=== PATIENT | female | born 1945 | race Caucasian/White ===

== ENCOUNTER → 2019-01-22 | Outpatient (CLI) | payer MEDICARE, OTHER | LOC: LB.LAB 10:39 | PROVIDERS: ATTEND Internal Medicine | DX: C82.90 Follicular lymphoma, unspecified, unspecified site (principal) | CPT/HCPCS: 36415; 80053; 83615; 85025 ==

== ENCOUNTER 2022-10-26 15:09 | Emergency (ER) | payer MEDICARE | END 2022-10-26 16:40 | LOC: LB.ED 15:09 | DX: I48.20 Chronic atrial fibrillation, unspecified (principal); Z79.01 Long term (current) use of anticoagulants; Z79.899 Other long term (current) drug therapy | CPT/HCPCS: 93005; 99285 ==

== ENCOUNTER 2024-09-10 10:54 | Emergency (ER) | payer MEDICARE ==
[2024-09-10 11:17] LABS: BASOPHILS ABSOLUTE AUTO 0.01 K/uL (0.02-0.10); BASOPHILS PERCENT AUTO 0.2 % (0.0-0.5); EOSINOPHILS ABSOLUTE AUTO 0.14 K/uL (0.04-0.40); EOSINOPHILS PERCENT AUTO 2.6 % (1.0-5.0); LYMPHOCYTES ABSOLUTE AUTO 1.92 K/uL (1.50-4.00); LYMPHOCYTES PERCENT AUTO 35.5 % (20.0-40.0); MEAN PLATELET VOLUME 10.9 fL (6.0-10.0); MONOCYTES ABSOLUTE AUTO 0.46 K/uL (0.20-0.80); MONOCYTES PERCENT AUTO 8.5 % (3.0-10.0); NEUTROPHILS ABSOLUTE AUTO 2.88 K/uL (2.00-7.50); NEUTROPHILS PERCENT AUTO 53.2 % (45.0-70.0); PLATELET COUNT,PLT 179 K/uL (150-500); RED BLOOD CELL COUNT 4.60 M/uL (3.80-5.80); RED CELL DISTRIBUTION WIDTH 13.3 % (11.0-16.0); WHITE BLOOD CELL COUNT,WBC 5.4 K/uL (4.0-11.0)
[2024-09-10 12:05] LABS: BLOOD UREA NITROGEN,BUN 22.0 mg/dL (8-26); CARBON DIOXIDE,CO2 28.0 mmol/L (21.0-32.0); CHLORIDE,CL 102.0 mmol/L (98-107); CREATININE 1.1 mg/dL (0.55-1.02); EST CRCL DRUG DOSING (CG) 39.46 mL/min; ESTIMATED GFR 51.0 mL/min (>60); GLUCOSE RANDOM 177.0 mg/dL (74-100); POTASSIUM,K 4.1 mmol/L (3.5-5.1); SODIUM,NA 137.0 mmol/L (136-145); TROPONIN I HIGH SENSITIVITY 6.3 pg/ml (<=60.4); TSH ULTRASENSITIVE 5.209 uIU/mL (0.358-3.740)
== END 2024-09-10 14:10 | disposition home or self-care (01) ==
LOC: LB.ED 10:54
DX: K11.20 Sialoadenitis, unspecified (principal); E03.9 Hypothyroidism, unspecified; I10 Essential (primary) hypertension; I48.91 Unspecified atrial fibrillation; Z79.01 Long term (current) use of anticoagulants; Z79.82 Long term (current) use of aspirin; Z79.899 Other long term (current) drug therapy
CPT/HCPCS: 36415; 70486; 80048; 83735; 84443; 84484; 85025; 93005; 93010; 96360; 99284; 99285-25; A0425; A0429; J7030